=== PATIENT | male | born 2000 | race Caucasian/White ===

== ENCOUNTER → 2021-10-17 11:39 | Outpatient (BNVA) | payer OTHER, SELFPAY | PROVIDERS: PCP Family Medicine; Visit Provider Nurse Practitioner Psychiatric/Mental Health | DX: Z03.89 Encounter for observation for other suspected diseases and conditions ruled out (principal) | CPT/HCPCS: 80053; 80307; 84439; 84443; 85025 ==

== ENCOUNTER → 2022-01-20 09:35 | Outpatient (BNVA) | payer BC, SELFPAY | PROVIDERS: PCP Family Medicine; Visit Provider Family Medicine | DX: L08.9 Local infection of the skin and subcutaneous tissue, unspecified (principal) | CPT/HCPCS: 80053; 85025; 85651; 86140 ==

== ENCOUNTER → 2022-02-14 17:53 | Outpatient (BNVA) | payer BC, MEDICAID, SELFPAY | PROVIDERS: PCP Family Medicine; Visit Provider Emergency Medicine | DX: J06.9 Acute upper respiratory infection, unspecified (principal) | CPT/HCPCS: 87426 ==

== ENCOUNTER → 2022-09-21 11:14 | Outpatient (BNVA) | payer BC, SELFPAY | PROVIDERS: PCP Family Medicine; Visit Provider Nurse Practitioner Psychiatric/Mental Health | DX: Z03.89 Encounter for observation for other suspected diseases and conditions ruled out (principal) | CPT/HCPCS: 80306 ==

== ENCOUNTER 2022-11-25 | Emergency (ER) | payer BC, MEDICAID, SELFPAY ==
[2022-11-25 00:05] VITALS: BP 129/81; PULSE 95; RESP 16; TEMP 36.6; O2SAT 100; BMI 23.1
--- NOTE | 2022-11-25 00:12 | ECG_ITS ---
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 Measurements Intervals [place] Rate: 94 P: 75 ND: 136 QRS: 71 QRSD: 89 T: 60 QT: 332 QTc: 416 Interpretive Statements SINUS RHYTHM WITH SINUS ARRHYTHMIA NONSPECIFIC T-WAVE ABNORMALITY No previous ECG available for comparison Electronically Signed On 11-25-2022 19:19:45 CDT by Jyothi Hughes M.D. [id number]
--- NOTE | 2022-11-25 00:12 | ECG_ITS ---
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 Measurements Intervals [place] Rate: 94 P: 75 TN: 136 QRS: 71 QRSD: 89 T: 60 QT: 332 QTc: 416 Interpretive Statements SINUS RHYTHM WITH SINUS ARRHYTHMIA NONSPECIFIC T-WAVE ABNORMALITY No previous ECG available for comparison Electronically Signed On 11-25-2022 19:19:19 CDT by Jyothi Hughes M.D. [id number]
--- NOTE | 2022-11-25 00:22 | XRR_ITS ---
PROCEDURE INFORMATION: Exam: XR Chest Exam date and time: 11/25/2022 12:52 AM Age: 21 years old Clinical indication: Chest pressure; Patient HX: C/O chest pain; Additional info: Cp TECHNIQUE: Imaging protocol: Radiologic exam of the chest. Views: 1 view. COMPARISON: CR XR chest 1V [id number] 02/19/2019 8:14 PM FINDINGS: Lungs: Unremarkable. No consolidation. Pleural spaces: Unremarkable. No pleural effusion. No pneumothorax. Heart/Mediastinum: Unremarkable. No cardiomegaly. Bones/joints: Unremarkable. XR/XR chest 1V portable [id number] IMPRESSION: No acute findings.
[2022-11-25 00:33] VITALS: RESP 18
[2022-11-25] MEDS: morphine 4 mg/mL SDV 1 mL IVP (00:33)
[2022-11-25] MEDS: ondansetron 2 mg/ML SDV 2 mL 4 MG IVP (00:33)
[2022-11-25] MEDS: lidocaine 2% viscous 15 ML, aluminum-mag hydrox-simethicon 30 ML, sucralfate oral liq 1 GM PO (00:34)
[2022-11-25 00:35] LABS: Basophils % 0.3 %; Eosinophils # 0.4 10^3/uL (0.0-0.8); Eosinophils % 6.6 %; Hematocrit 47.4 % (42.0-52.0); Hemoglobin 15.5 g/dL (11.7-16.6); Lymphocytes % 33.3 %; Mean Corpuscular HGB Conc 32.7 g/dL (30.0-36.0); Mean Corpuscular Volume 85.6 fl (80-94); Mean Platelet Volume 9.9 fL (7.4-10.4); Monocytes # 0.7 10^3/uL (0.2-0.9); Monocytes % 12.1 %; Neutrophils % 47.5 %; Nucleated Red Blood Cells % 0 %; Platelet Count 249 10^3/cmm (130-400); Red Blood Count 5.54 10^6/uL (4.1-5.3); Red Cell Distribution Width 13.2 % (12.1-15.1); White Blood Count 6.1 10^3/uL (4.0-10.0)
[2022-11-25 00:39] VITALS: BP 132/94; PULSE 104; RESP 24; O2SAT 100
--- NOTE | 2022-11-25 00:40 | ED_ITS ---
HPI - Chest Pain General: Chief Complaint: Chest Pain Stated Complaint: upper abd pain/chest discomfort Time Seen by Provider: 11/25/22 00:11 Source: patient History of Present Illness: 21-year-old thin male presenting with epigastric and chest discomfort radiating into his back. Is been going on for 45 minutes prior to arrival. He has had these episodes prior, but not this bad. He complains of a sulfur taste in his mouth at times. Pain is worse with a deep breath. He notes jolts of pain every few seconds no fever. No vomiting. MD complaint: chest pain Pertinent past history: other Prior episodes: Yes Pain location: substernal and epigastric Pain radiation: back Relieving factors: nothing Exacerbating factors: nothing Associated symptoms: Reports abdominal pain, diaphoresis, dyspnea and nausea; Deny fever(s), leg edema, palpitations, syncope or vomiting Review of Systems Const: Reports: diaphoresis; Denies: fever(s) ENMT: Denies: throat pain Card: Reports: chest pain; Denies: palpitations or syncope Resp: Reports: dyspnea GI: Reports: abdominal pain and nausea; Denies: vomiting Neuro: Reports: headache(s) PFSH ED PFSH: Medical History Essential hypertension Generalized anxiety disorder Insomnia Major depression Psychiatric care Surgical History History of adenoidectomy Family History Unknown No problems noted. Social History Smoking and tobacco status: current every day smoker cigarettes Packs smoked per day: 1.5 Second hand smoke exposure: No Smoking risk assessment/counseling performed?: No Alcohol intake: never Substance/Drug Use: never Adopted: No Caregiver/support person: No Lives independently: Yes Household members: significant other and children Housing: House Marital status: Single Number of children: 2 Highest education level completed: High School Graduate service: No Current occupational status: employed Current occupational exposures/hazards: No Sexually active: Yes Do you think of yourself as: Straight/Heterosexual Current gender identity: Male Special carlos needs: No Physical Exam Const: COMMON NORMALS: no acute distress GENERAL APPEARANCE: cooperative; not ill appearing and not frail appearing HENMT: COMMON NORMALS: normocephalic, atraumatic and Normal external nose p resent HEAD & SCALP: normocephalic and atraumatic FACE & SINUS: normal facial exam and face symmetric NOSE: Normal external nose present Eye: COMMON NORMALS: Equal, round and reactive pupils present and EOMs intact bilaterally PUPIL: Yes Equal, round and reactive pupils present Neck/C-Spine: GENERAL: Yes trachea midline Chest: CHEST: Yes Symmetrical chest wall rise and Yes tenderness (diffuse) Resp: COMMON NORMALS: normal respiratory effort, No retractions, No use of accessory muscles and clear to auscultation bilaterally AUSCULTATION: clear t o auscultation bilaterally Cardio: COMMON NORMALS: regular rate and regular rhythm RATE: regular rate RHYTHM: regular rhythm GI: COMMON NORMALS: Normal to inspection, nondistended, normoactive bowel sounds present PALPATION: Yes Tenderness to palpation present (GI) (epigastric) Extremity: COMMON NORMALS: no pedal edema Neuro: RHINA COMA SCALE: document GCS findings Rhina coma scale eye opening: Spontaneous Rhina coma scale verbal response: Orientated [place] coma scale motor response: Obey commands [place] coma scale total score: 15 SENSORY EXAM: Yes extremities (intact) Psych: COMMON NORMALS: speech normal SPEECH: Yes normal speech Skin: COMMON NORMALS: no rashes or lesions noted GENERAL SKIN EXAM: no rashes or lesions noted Course Vital Signs: Vital signs: Vital Signs Temperature 97.9 F 11/25/22 00:05 Pulse Rate 85 11/25/22 02:54 Respiratory Rate 14 11/25/22 02:54 Blood Pressure 122/71 11/25/22 02:54 Pulse Oximetry 98 11/25/22 02:30 Oxygen Delivery Me thod Room Air 11/25/22 01:09 MDM - Chest Pain Medical Decision Making 21-year-old male with epigastric and chest discomfort radiating to his back. says that he is also complained of dizziness and headache at times. Pain is improved after GI cocktail. His CBC is normal. His BMP is normal. D-dimer is nondetectable. EKG shows sinus rhythm with borderline tachycardia and sinus arrhythmia. No acute ST changes. His troponin baseline was 21 however. Delta troponin is -4.4. BNP is normal. Lipase is normal at 51. Because of the baseline troponin elevation, urine drug screen was ordered, and is positive for amphetamines. Amphetamine is likely the cause of troponin elevation. Cause of chest pain is essentially unknown at this point, but could include gastritis versus esophageal reflux. We will treat with PPI. Close outpatient follow-up. Lab Data 11/25/22 00:13 11/25/22 00:13 Radiology Impressions Chest X-Ray 11/25/22 00:22 IMPRESSION: No acute findings. Laboratory Results WBC 6.1 10^3/uL (4.0-10.0) 11/25/22 00:13 RBC 5.54 10^6/uL (4.1-5.3) H 11/25/22 00:13 Hgb 15.5 g/dL (11.7-16.6) 11/25/22 00:13 Hct 47.4 % (42.0-52.0) 11/25/22 00:13 MCV 85.6 fl (80-94) 11/25/22 00:13 MCH 28.0 pg (28.0-34.0) 11/25/22 00:13 MCHC 32.7 g/dL (30.0-36.0) 11/25/22 00:13 RDW 13.2 % (12.1-15.1) 11/25/22 00:13 Plt Count 249 10^3/cmm (130-400) 11/25/22 00:13 MPV 9.9 fL (7.4-10.4) 11/25/22 00:13 Neut % (Auto) 47.5 % 11/25/22 00:13 Lymph % (Auto) 33.3 % 11/25/22 00:13 Clinch % (Auto) 12.1 % 11/25/22 00:13 Eos % (Auto) 6.6 % 11/25/22 00:13 Baso % (Auto) 0.3 % 11/25/22 00:13 Neut # (Auto) 2.90 10^3/uL (1.8-7.7) 11/25/22 00:13 Lymph # (Auto) 2.0 10^3/uL (0.8-4.8) 11/25/22 00:13 Clinch # (Auto) 0.7 10^3/uL (0.2-0.9) 05/13/23 00:13 Eos # (Auto) 0.4 10^3/uL (0.0-0.8) 11/25/22 00:13 Baso # (Auto) 0.0 10^3/uL (0.0-0.1) 11/25/22 00:13 Nucleated RBC % (auto) 0 % 11/25/22 00:13 Nucleated RBCs # 0.0 /100WBC 11/25/22 00:13 D-Dimer <= 0.27 ug/mIFEU (0-0.59) 11/25/22 00:13 Sodium 141 mmol/L (136-145) 11/25/22 00:13 Potassium 3.8 mmol/L (3.5-5.1) 11/25/22 00:13 Chloride 102 mmol/L (98-107) 11/25/22 00:13 Carbon Dioxide 29 mmol/L (22-29) 11/25/22 00:13 Anion Gap 13.8 (5-19) 11/25/22 00:13 BUN 10 mg/dL (6-20) 11/25/22 00:13 Creatinine 1.0 mg/dL (0.7-1.2) 11/25/22 00:13 GFR Calculation 93.4 mL/min (90-130) 11/25/22 00:13 Glucose 86 mg/dL (65-115) 11/25/22 00:13 Calculated Osmolality 290 mOsm/kg (285-295) 11/25/22 00:13 Calcium 9.5 mg/dL (8.5-10.5) 11/25/22 00:13 Total Bilirubin 0.2 mg/dL (0.15-1.2) 11/25/22 00:13 AST 15 U/L (0-40) 11/25/22 00:13 ALT 17 U/L (0-41) 11/25/22 00:13 Alkaline Phosphatase 66 U/L (40-130) 11/25/22 00:13 Creatine Kinase 82 U/L (39-308) 11/25/22 00:13 Troponin T Baseline 21 ng/L (0-15) H 11/25/22 00:13 Troponin T 120 Minute 16.58 ng/L (0-15) H 11/25/22 02:04 Delta Troponin T -4.42 ABS# (0-10) L 11/25/22 02:04 NT-Pro-B Natriuret Pep 36 pg/mL (0-125) 11/25/22 00:13 Total Protein 7.4 g/dL (6.6-8.7) 11/25/22 00:13 Albumin 4.5 g/dL (3.5-5.2) 11/25/22 00:13 Globulin 2.9 g/dL (1.3-4.6) 11/25/22 00:13 Lipase 51 U/L (13-60) 11/25/22 00:13 Urine Opiates Screen Positive ng/mL (Negative) H 11/25/22 01:31 Ur Barbiturates Screen Negative ng/mL (Negative) 11/25/22 01:31 Ur Phencyclidine Scrn Negative ng/mL (Negative) 11/25/22 01:31 Ur Amphetamines Screen Positive ng/mL (Negative) H 11/25/22 01:31 U Benzodiazepines Scrn Negative ng/mL (Negative) 11/25/22 01:31 Urine Cocaine Screen Negative ng/mL (Negative) 11/25/22 01:31 U Marijuana (THC) Screen Negative ng/mL (Negative) 11/25/22 01:31 Discharge Plan Discharge Patient Disposition: Home Clinical Impression: Chest pain Condition: Stable Prescriptions: New Prevacid 30 mg capsule,delayed release(DR/EC) 30 mg PO DAILY Qty: 30 0RF No Action duloxetine 60 mg capsule,delayed release(DR/EC) 60 mg PO .q am Qty: 30 1RF Rx Instructions: Take one capsule by mouth every morning amitriptyline 25 mg tablet 25 mg PO DAILY Qty: 30 2RF OraMagicRx Mouthwash See Rx Instructions mucous membrane .COMPLEX Qty: 315 0RF Rx Instructions: 5-10 ml per day to affected mucosal area. Swish around the mouth for 30-60 seconds and spit. lorazepam 1 mg tablet 1 mg PO BID PRN (Reason: anxiety) Qty: 60 0RF Discharge Orders: Discharge ED (Routine); Ordered 11/25/22 Ordered By: Eric Maguire Referrals: Bro Figueroa DO [Primary Care Provider] - 4-7 days Patient Instructions: Chest Pain (ED) Activity Restrictions/Additional Instructions: Medication as directed. Follow-up with your doctor this coming week. Return for vomiting, fever, worsening pain, other concerning symptoms. Avoid stimulants such as caffeine, etc., as they can potentiate discomfort. Coding Level of Care Code ED Drafter Automotive Design Layout for Luz Pierre
[2022-11-25 00:49] LABS: Troponin(5th) Baseline 21 ng/L (0-15)
[2022-11-25 00:57] LABS: D Dimer <= 0.27 ug/mIFEU (0-0.59)
[2022-11-25 00:58] LABS: Alanine Aminotransferase 17 U/L (0-41); Albumin Level 4.5 g/dL (3.5-5.2); Alkaline Phosphatase 66 U/L (40-130); Anion Gap 13.8 (5-19); Aspartate Amino Transferase 15 U/L (0-40); Blood Urea Nitrogen 10 mg/dL (6-20); Calcium 9.5 mg/dL (8.5-10.5); Carbon Dioxide 29 mmol/L (22-29); Chloride 102 mmol/L (98-107); Creatine Phosphokinase 82 U/L (39-308); Globulin 2.9 g/dL (1.3-4.6); Glomerular Filtration Rate 93.4 mL/min (90-130); Glucose 86 mg/dL (65-115); Lipase 51 U/L (13-60); NT Pro B Type Natriuretic Pept 36 pg/mL (0-125); Osmolality Calculated 290 mOsm/kg (285-295); Potassium 3.8 mmol/L (3.5-5.1); Sodium 141 mmol/L (136-145); Total Bilirubin 0.2 mg/dL (0.15-1.2); Total Protein 7.4 g/dL (6.6-8.7)
[2022-11-25 01:09] VITALS: BP 127/81; PULSE 86; RESP 18; O2SAT 98
[2022-11-25 01:44] LABS: Amphetamines Screen Urine Positive (Negative); Barbiturates Screen Urine Negative (Negative); Benzodiazepines Screen Urine Negative (Negative); Cocaine Screen Urine Negative (Negative); Opiate Screen Urine Positive (Negative); PCP Screen Urine Negative (Negative); THC Screen Urine Negative (Negative)
--- NOTE | 2022-11-25 02:26 | ECG_ITS ---
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 Measurements Intervals [place] Rate: 87 P: 71 NE: 146 QRS: 75 QRSD: 85 T: 75 QT: 350 QTc: 423 Interpretive Statements SINUS RHYTHM NONSPECIFIC T-WAVE ABNORMALITY Compared to ECG 11/25/2022 00:12:28 Sinus arrhythmia no longer present T-wave abnormality still present Electronically Signed On 11-25-2022 19:28:15 CDT by Jyothi Hughes M.D. [email or web address] [facility]. [facility], [facility], cancer centerRadian Memory Systems/store/OM/[id number]
[2022-11-25 02:30] VITALS: BP 122/71; PULSE 84; RESP 14; O2SAT 98
[2022-11-25 02:32] LABS: Troponin 5 2HR 16.58 ng/L (0-15)
[2022-11-25 02:33] LABS: Troponin 5 2HR Delta -4.42 ABS# (0-10)
[2022-11-25 02:54] VITALS: BP 122/71; PULSE 85; RESP 14
== END 2022-11-25 03:05 | disposition home or self-care (01) ==
PROVIDERS: Emergency Provider Emergency Medicine; PCP Family Medicine
DX: R07.9 Chest pain, unspecified (principal); I10 Essential (primary) hypertension; F17.210 Nicotine dependence, cigarettes, uncomplicated
CPT/HCPCS: 71045; 80053; 80306; 82550; 83690; 83880; 84484; 85025; 85378; 93005; 96374; 96375; 99285; J2270; J2405

== ENCOUNTER 2023-05-18 23:24 | Emergency (ER) | payer BC, MEDICAID, SELFPAY ==
[2023-05-18 23:30] VITALS: BP 140/86; PULSE 109; RESP 16; TEMP 36.6; O2SAT 100
--- NOTE | 2023-05-19 00:55 | CTR_ITS ---
PROCEDURE INFORMATION: Exam: CT Head Without Contrast Exam date and time: 05/19/2023 1:24 AM Age: 22 years old Clinical indication: Headache; Patient HX: ACEVES with bilateral posterior ocular pain. ; Additional info: Headache, sinus pain TECHNIQUE: Imaging protocol: Computed tomography of the head without contrast. Radiation optimization: All CT scans at this facility use at least one of these dose optimization techniques: automated exposure control; mA and/or kV adjustment per patient size (includes targeted exams where dose is matched to clinical indication); or iterative reconstruction. REPORTING DATA: Count of CT and Cardiac NM exams in prior 12 months: This patient has received 0 known CTs and 0 known cardiac nuclear medicine studies in the 12 months prior to the current study. COMPARISON: CT neck w con* [id number] 02/19/2019 8:23 PM RADIATION DOSE METRICS: Total DLP (mGy-cm): 1037.4 FINDINGS: Brain: Normal. No infarct or hemorrhage. Unremarkable white matter. No mass effect. Cerebral ventricles: No ventriculomegaly. Paranasal sinuses: Minimal mucosal thickening in the ethmoid air cells. No air-fluid level. Mastoid air cells: Visualized mastoid air cells are clear. Bones/joints: Unremarkable. No acute fracture. Soft tissues: Unremarkable. CT/CT head wo con* [id number] IMPRESSION: Minimal mucosal thickening in the ethmoid air cells. No air-fluid level.
[2023-05-19] MEDS: metoclopramide 5 mg/mL SDV 2 mL 10 MG IVP (01:10)
[2023-05-19] MEDS: dexamethasone 4 mg/mL INJ 8 MG IVP (01:12)
[2023-05-19] MEDS: ketorolac 30 mg/mL INJ IVP (01:12)
[2023-05-19] MEDS: morphine 4 mg/mL SDV 1 mL IVP (01:13)
[2023-05-19 01:18] VITALS: BP 147/101; PULSE 95; RESP 16; O2SAT 100
[2023-05-19 02:27] VITALS: BP 129/79; PULSE 82; RESP 16; O2SAT 95
[2023-05-19 02:49] LABS: SARS Covid-2 Antigen negative (Negative)
--- NOTE | 2023-05-19 03:02 | W.ED.HA ---
HPI - Headache General: Chief Complaint: Headache Stated Complaint: headache,dental infection Time Seen by Provider: 05/19/23 00:09 History of Present Illness: 22-year-old male who says he gets frequent dental infections due to bad teeth. He presents with a headache for 3 days. He is nauseated. Some mild vision changes. Pain with moving his head. No fever. Has had some chills. Has taken Tylenol without much relief. Associated symptoms: Reports fever(s); Deny chest pain, confusion, nausea, rash or vomiting Review of Systems Const: Reports: fever(s) and chills; Denies: body aches Eyes: Denies: change in vision Card: Denies: chest pain or palpitations Resp: Denies: dyspnea, productive cough, non-productive cough or wheezing GI: Denies: abdominal pain, nausea, vomiting, diarrhea or hematochezia Skin/Breast: Denies: rash Neuro: Reports: headache(s) and dizziness; Denies: weakness in extremities or confusion PFS ED PFSH: Medical History Essential hypertension Generalized anxiety disorder Insomnia Major depression Psychiatric care Surgical History History of adenoidectomy Family History Unknown No problems noted. Social History Smoking and tobacco/nicotine status: current every day tobacco/nicotine user cigarettes Packs smoked per day: 1.5 Second hand smoke exposure: No Alcohol intake: never Substance/Drug Use: never Adopted: No Caregiver/support person: No Lives independently: Yes Household members: significant other and children Housing: House Marital status: Single Number of children: 2 Highest education level completed: High School Graduate service: No Current occupational status: employed Current occupational exposures/hazards: No Sexually active: Yes Do you think of yourself as: Straight/Heterosexual Current gender identity: Male Special carlos needs: No Physical Exam Const: COMMON NORMALS: alert GENERAL APPEARANCE: cooperative; not ill appearing and not frail appearing HENMT: COMMON NORMALS: normocephalic, atraumatic and Normal external nose present HEAD & SCALP: normocephalic and atraumatic FACE & SINUS: normal facial exam and face symmetric NOSE: Normal external nose present Eye: COMMON NORMALS: Equal, round and reactive pupils present and EOMs intact bilaterally PUPIL: Yes Equal, round and reactive pupils present Neck/C-Spine: GENERAL: Yes trachea midline Chest: CHEST: Yes Symmetrical chest wall rise Resp: COMMON NORMALS: normal respiratory effort, No retractions, No use of accessory muscles and clear to auscultation bilaterally AUSCULTATION: clear to auscultation bilaterally Cardio: COMMON NORMALS: regular rate and regular rhythm RATE: regular rate RHYTHM: regular rhythm GI: COMMON NORMALS: Normal to inspection, nondistended, normoactive bowel sounds present Extremity: COMMON NORMALS: no pedal edema Neuro: RHINA COMA SCALE: document GCS findings Rhina coma scale eye opening: Spontaneous [place] coma scale verbal response: Orientated [place] coma scale motor response: Obey commands [place] coma scale total score: 15 SENSORIUM/ORIENTATION: Yes alert CRANIAL NERVES: Yes CN normal except as noted COORDINATION/BALANCE: [id number] test normal and [id number]-[id number] test normal SPEECH: speech normal SENSORY EXAM: Yes extremities (intact) MOTOR EXAM: Pronator motor function not present COORDINATION: ymxfub-[id number] test normal and [id number] test normal Psych: COMMON NORMALS: speech normal SPEECH: Yes normal speech Skin: COMMON NORMALS: no rashes or lesions noted GENERAL SKIN EXAM: no rashes or lesions noted Course Vital Signs: Vital signs: Vital Signs Temperature 97.9 F 05/18/23 23:30 Pulse Rate 82 05/19/23 02:27 Respiratory Rate 16 05/19/23 02:27 Blood Pressure 129/79 05/19/23 02:27 Pulse Oximetry 95 05/19/23 02:27 Oxygen Delivery Me thod Room Air 05/18/23 23:30 MDM - Headache Medical Decision Making Patient is given migraine cocktail with improvement in his pain. As he was not a chronic migraine patient, CT was performed and is negative for acute change save some mucosal swelling of the ethmoids indicative of mild sinusitis. This will be treated. Outpatient follow-up. To return if worsening. Lab Data Radiology Impressions Head CT 05/19/23 00:55 IMPRESSION: Minimal mucosal thickening in the ethmoid air cells. No air-fluid level. Laboratory Results SARS-CoV-2 Ag (Rapid) negative (Negative) 05/19/23 02:23 All radiology interpretation(s) finalized by discharge Discharge Plan Discharge Patient Disposition: Home Clinical Impression: Sinusitis, Headache Condition: Stable Prescriptions: New levofloxacin 500 mg tablet 500 mg PO DAILY 7 Days Qty: 7 0RF ketorolac 10 mg tablet 10 mg PO TID PRN (Reason: pain) Qty: 10 0RF No Action clindamycin HCl 300 mg capsule 300 mg PO TID Qty: 30 0RF amitriptyline 25 mg tablet See Rx Instructions .ROUTE .COMPLEX Qty: 30 2RF Dose Instruction: TAKE 1 TABLET BY MOUTH EVERY DAY Rx Instructions: TAKE 1 TABLET BY MOUTH EVERY DAY lorazepam 1 mg tablet 1 mg PO BID PRN (Reason: anxiety) Qty: 60 2RF Prevacid 30 mg capsule,delayed release(DR/EC) 30 mg PO DAILY Qty: 30 0RF Discharge Orders: Discharge ED (Routine); Ordered 05/19/23 Ordered By: Eric Maguire Referrals: Bro Figueroa, [Primary Care Provider] - Patient Instructions: Sinusitis (ED), Acute Headache (ED) Activity Restrictions/Additional Instructions: Return for worsening vision despite treatment, language problems, weakness, other concerning symptoms. Medication as directed. Call tomorrow for the results of your COVID test that was done here, as further treatment could be necessary. Coding Level of Care Code ED Joint Cleaning Machine Operator for Luz Pierre
== END 2023-05-19 02:48 | disposition home or self-care (01) ==
PROVIDERS: Emergency Provider Emergency Medicine; PCP Family Medicine
DX: J32.9 Chronic sinusitis, unspecified (principal); Z11.52 Encounter for screening for COVID-19; I10 Essential (primary) hypertension; F17.210 Nicotine dependence, cigarettes, uncomplicated
CPT/HCPCS: 70450; 87426; 96374; 96375; 99285; J1100; J1885; J2270; J2765

== ENCOUNTER 2023-10-23 11:14 | Emergency (ER) | payer BC, MEDICAID, SELFPAY ==
[2023-10-23 11:16] VITALS: BMI 20.5
[2023-10-23 11:18] VITALS: BP 135/102; PULSE 106; RESP 16; TEMP 36.8; O2SAT 100
--- NOTE | 2023-10-23 11:18 | CT_ITS ---
WS: [id number] CT FACIAL BONES HISTORY: trauamatic left jaw pain TECHNIQUE: Images obtained from the supraorbital location through the mandible. Soft tissue and bone windows are reviewed. Coronal and sagittal reformats have also been submitted. DLP: 1820.[address] scans at [facility] use at least one of these dose optimization techniques: automated e xposure control; mA and/or kV adjustment per patient size (includes targeted exams where dose is matc hed to clinical indication); or iterative reconstruction. COMPARISON: None available. Normal nasal bones and zygomatic arches. Mandible and maxilla are intact. No fractures. Mandibular co ndyles normally seated in the fossa. Upper cervical spine is negative. Very minimal mucoperiosteal thickening in the maxillary and ethmoid air cells. No air-fluid levels. N o acute blood products. Very minimal mucoperiosteal thickening in the frontal sinuses. Globes and orb its are negative. Bilateral dental caries. IMPRESSION: Negative facial bone CT. No fracture.
--- NOTE | 2023-10-23 11:18 | CT_ITS ---
WS: [id number] CT HEAD NONCONTRAST HISTORY: Traumatic head pain TECHNIQUE: Contiguous axial imaging performed through the brain in 2.5 mm imaging. Bone and soft tiss ue windows. Sagittal and coronal reformats reviewed. All CT scans at [facility] use at least one of these dose optimization techniques: automated exposure control; mA and/or kV adjustment per pa tient size (includes targeted exams where dose is matched to clinical indication); or iterative recon struction. DLP: 1820.64 mGy.cm COMPARISON: 05/19/2023 No acute intracranial hemorrhage, midline shift or mass effect. No atrophy or prior infarcts or herniation. Ventricles: Normal size with no hydrocephalus. Paranasal sinuses: As visualized are clear. Mastoid air cells: Well pneumatized. Calvarium and scalp: Skull is intact with no soft tissue edema or swelling. IMPRESSION: Negative head CT.
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
[2023-10-23 12:43] VITALS: BP 122/75; PULSE 92; O2SAT 97
== END 2023-10-23 12:45 | disposition home or self-care (01) ==
PROVIDERS: Emergency Provider Emergency Medicine; PCP Family Medicine
DX: S09.93XA Unspecified injury of face, initial encounter (principal); Y04.2XXA Assault by strike against or bumped into by another person, initial encounter; K04.7 Periapical abscess without sinus; F17.210 Nicotine dependence, cigarettes, uncomplicated; I10 Essential (primary) hypertension
CPT/HCPCS: 70450; 70486; 99284

== ENCOUNTER → 2024-07-10 10:38 | Outpatient (BNVA) | payer BC, MEDICAID, SELFPAY | PROVIDERS: PCP Family Medicine; Visit Provider Nurse Practitioner Family | DX: N50.812 Left testicular pain (principal); M54.50 Low back pain, unspecified; N39.0 Urinary tract infection, site not specified | CPT/HCPCS: 81000 ==

== ENCOUNTER → 2024-07-30 15:50 | Outpatient (BNVA) | payer SELFPAY | PROVIDERS: PCP Family Medicine; Visit Provider Registered Nurse Neonatal Intensive Care | DX: R39.9 Unspecified symptoms and signs involving the genitourinary system (principal) | CPT/HCPCS: 81000; 87086 ==

== ENCOUNTER 2024-08-21 03:30 | Emergency (ER) | payer SELFPAY ==
--- NOTE | 2024-08-21 03:32 | XRR_ITS ---
PROCEDURE INFORMATION: Exam: XR Chest Exam date and time: 08/21/2024 3:34 AM Age: 23 years old Clinical indication: Chest pressure and chest wall pain; Additional info: Chest pain TECHNIQUE: Imaging protocol: Radiologic exam of the chest. Views: 1 view. COMPARISON: CR XR chest 1V portable [id number] 11/25/2022 12:52 AM FINDINGS: Lungs: Unremarkable. No consolidation. Pleural spaces: Unremarkable. No pleural effusion. No pneumothorax. Heart/Mediastinum: Unremarkable. No cardiomegaly. Bones/joints: Unremarkable. XR/XR chest 1V portable [id number] IMPRESSION: No acute findings.
[2024-08-21 03:33] VITALS: BP 168/104; PULSE 106; RESP 16; TEMP 36.7; O2SAT 99; BMI 28.2
--- NOTE | 2024-08-21 03:34 | ECG_ITS ---
[facility] Date: 2024-08-21 Pat Name: Nikita Cleary Department: Room: Gender: Male Loop Cutter: : 2000 Requested By: Jasen Coelho Order Number: [id number] Michael MD: Dieter Garcia M.D. Measurements Intervals [place] Rate: 105 P: 57 IN: 142 QRS: 49 QRSD: 102 T: 19 QT: 312 QTc: 413 Interpretive Statements SINUS TACHYCARDIA POSSIBLE LEFT ATRIAL ENLARGEMENT [-0.1mV P-WAVE IN V1/V2] POSSIBLE RIGHT VENTRICULAR CONDUCTION DELAY [RSR (QR) IN V1/V2] NONSPECIFIC T-WAVE ABNORMALITY Compared to ECG 11/25/2022 02:26:12 Sinus rhythm no longer present T-wave abnormality still present Electronically Signed On 08-21-2024 21:52:24 CONTINUOUS IMPROVEMENT INTERN by Dieter Garcia M.D. [id number]
[2024-08-21 03:38] VITALS: BP 141/79; PULSE 89; RESP 18; O2SAT 99
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
[2024-08-21 03:51] LABS: Basophils % 0.3 %; Eosinophils # 0.3 10^3/uL (0.0-0.8); Eosinophils % 3.8 %; Hematocrit 41.7 % (37-53); Lymphocytes # 1.8 10^3/uL (0.8-4.8); Mean Corpuscular HGB Conc 33.6 g/dL (30-55); Mean Corpuscular Hemoglobin 28.8 pg (27-33); Mean Corpuscular Volume 85.8 fl (82-101); Mean Platelet Volume 9.8 fL (7.4-10.4); Monocytes # 1.2 10^3/uL (0.2-0.9); Monocytes % 16.5 %; Neutrophils # 3.76 10^3/uL (1.8-7.7); Neutrophils % 53.3 %; Nucleated Red Blood Cells % 0 %; Platelet Count 217 10^3/cmm (157-399); Red Blood Count 4.86 10^6/uL (3.85-5.65); Red Cell Distribution Width 12.6 % (12.1-15.1); White Blood Count 7.05 10^3/uL (3.29-11.43)
[2024-08-21 03:53] VITALS: PULSE 79; RESP 17; O2SAT 98
[2024-08-21 04:08] VITALS: BP 132/79; PULSE 74; RESP 15; O2SAT 97
[2024-08-21 04:09] LABS: Troponin(5th) Baseline 10 ng/L (0-15)
[2024-08-21 04:11] LABS: Alanine Aminotransferase 21 U/L (0-41); Albumin Level 4.5 g/dL (3.5-5.2); Alkaline Phosphatase 71 U/L (40-130); Anion Gap 15.2 (5-19); Aspartate Amino Transferase 15 U/L (0-40); Blood Urea Nitrogen 14 mg/dL (6-20); Calcium 9.2 mg/dL (8.5-10.5); Carbon Dioxide 26 mmol/L (22-29); Chloride 105 mmol/L (98-107); Creatinine Clr Calc Pharmacy 130.6992; Globulin 2.6 g/dL (1.3-4.6); Glomerular Filtration Rate 82.2 mL/min (90-130); Glucose 101 mg/dL (65-115); Lipase 44 U/L (13-60); Magnesium 1.9 mg/dL (1.7-2.3); Osmolality Calculated 295 mOsm/kg (285-295); Potassium 4.2 mmol/L (3.5-5.1); Sodium 142 mmol/L (136-145); Total Bilirubin 0.2 mg/dL (0.15-1.2); Total Protein 7.1 g/dL (6.6-8.7)
[2024-08-21 04:25] VITALS: BP 132/79; PULSE 82; O2SAT 98
== END 2024-08-21 04:37 | disposition home or self-care (01) ==
PROVIDERS: Emergency Provider Emergency Medicine
DX: R10.12 Left upper quadrant pain (principal); F17.210 Nicotine dependence, cigarettes, uncomplicated; I10 Essential (primary) hypertension
CPT/HCPCS: 71045; 80053; 83690; 83735; 84484; 85025; 93005; 99285

== ENCOUNTER 2024-09-03 01:23 | Emergency (ER) | payer SELFPAY ==
[2024-09-03 01:25] VITALS: BP 163/101; PULSE 83; RESP 18; TEMP 36.7; O2SAT 99; BMI 28.2
[2024-09-03 01:29] VITALS: BP 163/101; PULSE 83; O2SAT 99
--- NOTE | 2024-09-03 01:29 | W.ED.ABDPA2 ---
HPI - Abdominal Pain General: Chief Complaint: Abdominal Pain Stated Complaint: abdomen pain Time Seen by Provider: 09/03/24 01:31 History of Present Illness: Patient presents to the ER with complaints of abdominal pain. Has been seen multiple times for left-sided abdominal pain. Now he is saying he has a right-sided right upper quadrant abdominal pain it has been there for the last day. Patient denies any nausea vomiting diarrhea constipation fevers chills. Abdominal surgeries. Related Data Home Medications ?Medication ?Instructions ?Recorded ?Confirmed nortriptyline 10 mg capsule 10 mg PO DAILY 07/30/24 07/30/24 trazodone 100 mg tablet 100 mg PO BID 07/30/24 07/30/24 Previous Rx's ?Medication ?Instructions ?Recorded propranolol 20 mg tablet 20 mg PO BID #60 tabs 07/31/23 lorazepam 1 mg tablet 1 mg PO BID PRN anxiety #60 tabs 10/23/23 ciprofloxacin HCl 500 mg tablet 500 mg PO BID 10 days #20 tabs 07/10/24 (Cipro) ibuprofen 800 mg tablet 800 mg PO TID PRN pain #90 tabs 07/10/24 Allergies Allergy/AdvReac Type Severity Reaction Status Date / Time Penicillins Allergy Severe ALGY-Anaphy Verified 09/03/24 01:29 laxis doxycycline Allergy Intermediate ADR-Nausea Verified 09/03/24 01:29 amoxicilin Allergy Itching Uncoded 09/03/24 01:29 Throat swelling Review of Systems General: Reports: 10 or more systems reviewed and unremarkable except in HPI and below PFSH ED PFSH: Medical History Generalized anxiety disorder Insomnia Essential hypertension Major depression Surgical History History of adenoidectomy Family History Unknown No problems noted. Social History Smoking and tobacco/nicotine status: current every day tobacco/nicotine user cigarettes Packs smoked per day: 1.5 Second hand smoke exposure: No Alcohol intake: never Substance/Drug Use: never Adopted: No Caregiver/support person: No Lives independently: Yes Household members: significant other and children Housing: House Marital status: Single Number of children: 2 Highest education level completed: High School Graduate service: No Current occupational status: employed Current occupational exposures/hazards: No Sexually active: Yes Do you think of yourself as: Straight/Heterosexual Current gender identity: Male Special carlos needs: No Physical Exam Const: COMMON NORMALS: no acute distress, average body habitus, patient oriented x3, no limitations, healthy appearing, alert and well nourished HENMT: COMMON NORMALS: normocephalic, atraumatic, hearing grossly normal bilaterally, external ears normal, Normal external nose present, moist oral mucous membranes and oropharynx normal HEAD & SCALP: normocephalic and atraumatic NOSE: Normal external nose present EXTERNAL EAR: Yes external ears normal Neck/C-Spine: COMMON NORMALS: no JVD Chest: COMMONS NORMALS: normal inspection of the chest and normal palpation of entire chest wall Resp: COMMON NORMALS: normal respiratory effort, No retractions, No use of accessory muscles and clear to auscultation bilaterally AUSCULTATION: clear to auscultation bilaterally Cardio: COMMON NORMALS: no JVD, regular rate, regular rhythm, S1 normal heart sound present, S2 normal heart sound present, No gallops present (Cardio), No clicks present (Cardio), No murmurs present (Cardio) and No rub (Cardio) RATE: regular rate RHYTHM: regular rhythm HEART SOUNDS: S1 normal heart sound present and S2 normal heart sound present GI: COMMON NORMALS: Normal to inspection, nondistended, normoactive bowel sounds present, Soft to palpation, No hepatosplenomegaly present and no masses; negative for non-tender (Minimal tender to palpation right upper quadrant and epigastric area) PALPATION: Yes Soft to palpation and Yes No hepatosplenomegaly present Neuro: COMMON NORMALS: patient oriented x3 SENSORIUM/ORIENTATION: Yes alert Course Vital Signs: Vital signs: Vital Signs Temperature 98.0 F 09/03/24 01:25 Pulse Rate 83 09/03/24 01:29 Respiratory Rate 18 09/03/24 01:25 Blood Pressure 163/101 09/03/24 01:29 Pulse Oximetry 99 09/03/24 01:29 Oxygen Delivery Me thod Room Air 09/03/24 01:25 MDM - Abdominal Pain Medical Decision Making Physical exam was performed lab work was obtained, CBC CMP lipase urinalysis all essentially normal as well as normal physical exam other than minimal right upper quadrant tenderness. [facility] Medical Records I reviewed the patient's medical records. Lab Data I reviewed the patient's lab results. 09/03/24 01:31 09/03/24 01:31 Labs/Radiology: Laboratory Results WBC 6.41 10^3/uL (3.29-11.43) 09/03/24 01:31 RBC 5.11 10^6/uL (3.85-5.65) 09/03/24 01:31 Hgb 14.60 g/dL (11.27-16.99) 09/03/24 01:31 Hct 44.6 % (37-53) 09/03/24 01: MCV 87.3 fl (82-101) 09/03/24 01:31 MCH 28.6 pg (27-33) 09/03/24 01: MCHC 32.7 g/dL (30-55) 09/03/24 01: RDW 12.6 % (12.1-15.1) 09/03/24 01:31 Plt Count 221 10^3/cmm (157-399) 09/03/24 01:31 MPV 9.7 fL (7.4-10.4) 09/03/24 01:31 Neut % (Auto) 52.3 % 09/03/24 01:31 Lymph % (Auto) 27.9 % 09/03/24 01:31 Floyd % (Auto) 14.5 % 09/03/24 01: Eos % (Auto) 4.8 % 09/03/24 01:31 Baso % (Auto) 0.3 % 09/03/24 01:31 Neut # (Auto) 3.35 10^3/uL (1.8-7.7) 09/03/24 01:31 Lymph # (Auto) 1.8 10^3/uL (0.8-4.8) 09/03/24 01:31 Floyd # (Auto) 0.9 10^3/uL (0.2-0.9) 09/03/24 01:31 Eos # (Auto) 0.3 10^3/uL (0.0-0.8) 09/03/24 01:31 Baso # (Auto) 0.0 10^3/uL (0.0-0.1) 09/03/24 01:31 Nucleated RBC % (auto) 0 % 09/03/24 01:31 Nucleated RBCs # 0.0 /100WBC 09/03/24 01:31 Sodium 140 mmol/L (136-145) 09/03/24 01:31 Potassium 4.0 mmol/L (3.5-5.1) 09/03/24 01:31 Chloride 101 mmol/L (98-107) 09/03/24 01:31 Carbon Dioxide 26 mmol/L (22-29) 09/03/24 01:31 Anion Gap 17.0 (5-19) 09/03/24 01:31 BUN 13 mg/dL (6-20) 09/03/24 01:31 Creatinine 1.0 mg/dL (0.7-1.2) 09/03/24 01:31 GFR Calculation 91.8 mL/min (90-130) 09/03/24 01:31 Glucose 105 mg/dL (65-115) 09/03/24 01:31 Calculated Osmolality 290 mOsm/kg (285-295) 09/03/24 01:31 Calcium 9.3 mg/dL (8.5-10.5) 09/03/24 01:31 Total Bilirubin 0.2 mg/dL (0.15-1.2) 09/03/24 01:31 AST 16 U/L (0-40) 09/03/24 01:31 ALT 29 U/L (0-41) 09/03/24 01:31 Alkaline Phosphatase 70 U/L (40-130) 09/03/24 01:31 Total Protein 7.1 g/dL (6.6-8.7) 09/03/24 01:31 Albumin 4.3 g/dL (3.5-5.2) 09/03/24 01:31 Globulin 2.8 g/dL (1.3-4.6) 09/03/24 01:31 Lipase 42 U/L (13-60) 09/03/24 01:31 Urine Color Yellow (Yellow) 09/03/24 01:52 Urine Appearance Clear (CLEAR) 09/03/24 01:52 Urine pH 6.0 (5-7) 09/03/24 01:52 Ur Specific Carrie 1.025 (1.005-1.030) 09/03/24 01:52 Urine Protein Negative (Negative) 09/03/24 01:52 Urine Glucose (UA) Negative (Normal) 09/03/24 01:52 Urine Ketones Negative (Negative) 09/03/24 01:52 Urine Blood Negative (Negative) 09/03/24 01:52 Urine Nitrate Negative (Negative) 09/03/24 01:52 Urine Bilirubin Negative (Negative) 09/03/24 01:52 Urine Urobilinogen 0.2 mg/dL (Negative) 09/03/24 01:52 Ur Leukocyte Esterase Negative (Negative) 09/03/24 01:52 Urine RBC None /hpf (0-2) 09/03/24 01:52 Urine WBC None /hpf (0-5) 09/03/24 01:52 Ur Squamous Epith Cells None /hpf (0-5) 09/03/24 01:52 Amorphous Sediment Not Reportable 09/03/24 01:52 Urine Bacteria None /hpf (NONE) 09/03/24 01:52 All radiology interpretation(s) finalized by discharge Discharge Plan Discharge Patient Disposition: Home Clinical Impression: Abdominal pain Qualifiers: Abdominal location: right upper quadrant Qualified Code(s): R10.11 - Right upper quadrant pain Condition: Stable Prescriptions: No Action ibuprofen 800 mg tablet 800 mg PO TID PRN (Reason: pain) Qty: 90 0RF ciprofloxacin HCl [Cipro] 500 mg tablet 500 mg PO BID 10 Days Qty: 20 0RF propranolol 20 mg tablet 20 mg PO BID Qty: 60 2RF trazodone 100 mg tablet 100 mg PO BID nortriptyline 10 mg capsule 10 mg PO DAILY lorazepam 1 mg tablet 1 mg PO BID PRN (Reason: anxiety) Qty: 60 1RF Discharge Orders: Discharge ED (Routine); Ordered 09/03/24 Ordered By: Jasen Coelho Patient Instructions: Abdominal Pain (ED) Activity Restrictions/Additional Instructions: Your lab work did not show any abnormalities that would be consistent with your symptomatology. He may need further evaluation treatment. Please follow-up with the physician through the [facility] within the next 7 days for further evaluation treatment. Activity restrictions/additional instructions: Thank you for choosing [facility] for your healthcare needs today. Please realize that you were seen in the emergency department and that we are providing you with an emergency medical screening exam and this may not be a complete and all exclusive of all testing and/or medical workup we may need to determine your element or severity of your illness. It is very important that you follow-up as instructed with your primary care provider or specialist for the additional evaluation and to discuss your medical treatment plan. You may return to the emergency department should you have concerns or if your condition changes or worsens in any way. Print Language: Kiswahili Coding Level of Care Code ED [employer] for Luz Pierer
[2024-09-03 01:41] LABS: Basophils % 0.3 %; Eosinophils # 0.3 10^3/uL (0.0-0.8); Eosinophils % 4.8 %; Hematocrit 44.6 % (37-53); Lymphocytes # 1.8 10^3/uL (0.8-4.8); Lymphocytes % 27.9 %; Mean Corpuscular HGB Conc 32.7 g/dL (30-55); Mean Corpuscular Hemoglobin 28.6 pg (27-33); Mean Corpuscular Volume 87.3 fl (82-101); Mean Platelet Volume 9.7 fL (7.4-10.4); Monocytes # 0.9 10^3/uL (0.2-0.9); Monocytes % 14.5 %; Neutrophils # 3.35 10^3/uL (1.8-7.7); Neutrophils % 52.3 %; Nucleated Red Blood Cells % 0 %; Platelet Count 221 10^3/cmm (157-399); Red Blood Count 5.11 10^6/uL (3.85-5.65); Red Cell Distribution Width 12.6 % (12.1-15.1); White Blood Count 6.41 10^3/uL (3.29-11.43)
[2024-09-03 02:01] LABS: Alanine Aminotransferase 29 U/L (0-41); Albumin Level 4.3 g/dL (3.5-5.2); Alkaline Phosphatase 70 U/L (40-130); Aspartate Amino Transferase 16 U/L (0-40); Blood Urea Nitrogen 13 mg/dL (6-20); Calcium 9.3 mg/dL (8.5-10.5); Carbon Dioxide 26 mmol/L (22-29); Chloride 101 mmol/L (98-107); Creatinine Clr Calc Pharmacy 143.7691; Globulin 2.8 g/dL (1.3-4.6); Glomerular Filtration Rate 91.8 mL/min (90-130); Glucose 105 mg/dL (65-115); Lipase 42 U/L (13-60); Osmolality Calculated 290 mOsm/kg (285-295); Sodium 140 mmol/L (136-145); Total Bilirubin 0.2 mg/dL (0.15-1.2); Total Protein 7.1 g/dL (6.6-8.7)
[2024-09-03 02:09] LABS: Bilirubin Urine Negative (Negative); Blood Urine Negative (Negative); Glucose Urine UA Negative (Normal); Ketones Urine Negative (Negative); Leukocyte Esterase Urine Negative (Negative); Nitrate Urine Negative (Negative); Protein Urine Negative (Negative); Specific Gravity, Urine 1.025 (1.005-1.030); Urine Appearance Clear (CLEAR); Urine Color Yellow (Yellow); Urobilinogen Urine 0.2 mg/dL (Negative)
[2024-09-03 02:17] LABS: UA Manual Slide Review YES
[2024-09-03 02:18] LABS: Add Urine Microscopic? YES
[2024-09-03 02:27] VITALS: BP 139/87; PULSE 64; RESP 18; O2SAT 98
== END 2024-09-03 02:32 | disposition home or self-care (01) ==
PROVIDERS: Emergency Provider Emergency Medicine
DX: R10.11 Right upper quadrant pain (principal); F17.210 Nicotine dependence, cigarettes, uncomplicated; I10 Essential (primary) hypertension
CPT/HCPCS: 36415; 80053; 81001; 83690; 85025; 99283